=== PATIENT | female | born 1990 | race Caucasian/White ===

== ENCOUNTER 2021-10-11 13:21 | Emergency (ER) | payer OTHER ==
[2021-10-11 14:03] LABS: HEMOGLOBIN 13.7 gm/dl (12.3-15.3); RED BLOOD COUNT 4.6 M/UL (4.00-5.10); WHITE BLOOD COUNT 4.4 K/UL (4.5-11.0)
[2021-10-11 14:22] LABS: BUN/CREATININE RATIO 20 (0-10)
[2021-10-11] MEDS ORDERED: PERCOCET 5/325 T1 EA PO (15:13)
[2021-10-11] MEDS ORDERED: IBUPROFEN600 MG PO (15:13)
== END 2021-10-11 15:19 | disposition home or self-care (01) ==
LOC: ER1 13:21
PROVIDERS: Family Medicine
DX: M54.50 Low back pain, unspecified (principal)
CPT/HCPCS: 72100; 80053; 81001; 84703; 85025; 99284